=== PATIENT | female | born 1935 | race Caucasian/White ===

== ENCOUNTER 2021-07-13 17:33 | Emergency (ER) | payer MEDICARE, OTHER ==
[~2021-07-13] VITALS: Ht 152.4 cm; Wt 56.7 kg
[~2021-07-13 17:33] MED LIST: LISI-209 PO
[2021-07-13 17:52] VITALS: BP_SYST 163
[2021-07-13 19:04] LABS: BASOPHILS % (AUTO) 0.7 % (0.0-2.0); EOSINOPHILS # (AUTO) 0.1 K/uL (0.0-0.4); EOSINOPHILS % (AUTO) 2.7 % (0.0-4.0); HEMATOCRIT 36.8 % (36-48); HEMOGLOBIN 12.5 g/dL (12.0-16.0); LYMPHOCYTES # (AUTO) 1.3 K/uL (1.0-5.5); LYMPHOCYTES % (AUTO) 23.7 % (20.5-51.5); MEAN CORPUSCULAR HEMOGLOBIN 29 pg (27-31); MEAN CORPUSCULAR HGB CONC 34 % (32-36); MEAN CORPUSCULAR VOLUME 86 fL (79.0-98.0); MONOCYTES # (AUTO) 0.3 K/uL (0.0-1.0); MONOCYTES % (AUTO) 6.1 % (1.7-9.3); NEUTROPHILS # (AUTO) 3.6 K/uL (1.8-7.7); NEUTROPHILS % (AUTO) 66.8 % (40.0-70.0); PLATELET COUNT (AUTO) 197 K/uL (130-430); RED BLOOD CELL COUNT(AUTO) 4.29 MIL/uL (4.2-6.2); RED CELL DISTRIBUTION WIDTH 12.8 % (9.0-15.0); WHITE BLOOD COUNT (AUTO) 5.4 K/uL (4.8-10.8)
[2021-07-13 19:23] LABS: ANION GAP 6 (5-15); CALCIUM 8.7 mg/dL (8.4-11.0); CHLORIDE 103 mmol/L (98-107); GLUCOSE 116 mg/dL (70-99); POTASSIUM 3.2 mmol/L (3.5-5.1); SODIUM SERUM 139 mmol/L (136-145); UREA NITROGEN, BLOOD 21 mg/dL (8-21)
[2021-07-13 19:29] LABS: ALANINE AMINOTRANSFERASE 22 U/L (12-78); ALBUMIN 3.3 g/dL (3.4-4.8); ASPARTATE AMINOTRANSFERASE 15 U/L (10-37); TOTAL BILIRUBIN 0.3 mg/dL (0.0-1.0)
[2021-07-13 20:53] VITALS: BP_SYST 161
== END 2021-07-13 20:53 | disposition home or self-care (01) ==
LOC: SED 17:33
DX: R42 Dizziness and giddiness (principal); I10 Essential (primary) hypertension; Z88.8 Allergy status to other drugs, medicaments and biological substances; Z79.899 Other long term (current) drug therapy
CPT/HCPCS: 36415; 71045; 80053; 82550; 83735; 84484; 85025; 93005; 99285

== ENCOUNTER 2022-04-21 12:14 | Inpatient (IN) | payer MEDICARE, OTHER ==
[~2022-04-21] VITALS: Ht 149.9 cm; Wt 58.5 kg
[2022-04-21 12:28] VITALS: BP_SYST 130
--- NOTE | 2022-04-21 12:32 | NUR ---
Patient to ER bed 08 to gown for evaluation. Side rails up.
[2022-04-21 13:08] LABS: BASOPHILS % (AUTO) 0.2 % (0.0-2.0); HEMATOCRIT 35.7 % (36-48); HEMOGLOBIN 12.5 g/dL (12.0-16.0); LYMPHOCYTES # (AUTO) 0.6 K/uL (1.0-5.5); LYMPHOCYTES % (AUTO) 8.4 % (20.5-51.5); MEAN CORPUSCULAR HEMOGLOBIN 30 pg (27-31); MEAN CORPUSCULAR HGB CONC 35 % (32-36); MEAN CORPUSCULAR VOLUME 85 fL (79.0-98.0); MONOCYTES # (AUTO) 0.5 K/uL (0.0-1.0); MONOCYTES % (AUTO) 6.9 % (1.7-9.3); NEUTROPHILS # (AUTO) 6.5 K/uL (1.8-7.7); NEUTROPHILS % (AUTO) 84.5 % (40.0-70.0); PLATELET COUNT (AUTO) 173 K/uL (130-430); RED BLOOD CELL COUNT(AUTO) 4.22 MIL/uL (4.2-6.2); RED CELL DISTRIBUTION WIDTH 13.1 % (9.0-15.0); WHITE BLOOD COUNT (AUTO) 7.7 K/uL (4.8-10.8)
[2022-04-21 13:14] LABS: ANION GAP 8 (5-15); CALCIUM 8.9 mg/dL (8.4-11.0); CHLORIDE 101 mmol/L (98-107); CREATININE 1.05 mg/dL (0.55-1.30); GLUCOSE 131 mg/dL (70-99); POTASSIUM 3.3 mmol/L (3.5-5.1); SODIUM SERUM 137 mmol/L (136-145); UREA NITROGEN, BLOOD 22 mg/dL (8-21)
--- NOTE | 2022-04-21 13:18 | NUR ---
COVID SPECIMEN OBTAINED AND SENT TO LAB.
[2022-04-21 13:42] LABS: ALANINE AMINOTRANSFERASE 28 U/L (12-78); ASPARTATE AMINOTRANSFERASE 53 U/L (10-37); TOTAL BILIRUBIN 0.4 mg/dL (0.0-1.0)
[2022-04-21 14:01] LABS: ACETONE, SERUM NEGATIVE (NEGATIVE)
[2022-04-21 14:04] LABS: CKMB RELATIVE INDEX 0.3 (0.0-2.9); CREATINE KINASE MB 8.1 ng/mL (0-3.6)
--- NOTE | 2022-04-21 16:00 | NUR ---
DR. MAURICE MET WITH AND ASSESSED PT. MADE HIM AWARE PT HAS 100.4F TEMP, COOLING MEASURES IN PLACE, IVF NS AT 999/HOUR.
--- NOTE | 2022-04-21 16:10 | NUR ---
TYLENOL 1000MG PO GIVEN TO TEMP 100.2F.
[2022-04-21] MEDS ORDERED: ACETAMINOPHEN 500 MG TABLET PO ONE ×2 (16:15)
[2022-04-21] MEDS ORDERED: NACL 0.9% 1,000 ML IV ONE (16:30)
--- NOTE | 2022-04-21 17:19 | NUR ---
SPOKE TO PT REGARDING HOME MEDICATIONS, SHE DOES NOT KNOW WHAT SHE TAKES. CALLED PT'S DAUGHTER GUIDO AND LEFT MESSAGE FOR HER TO CALL BACK. THE PT SAYS THE DAUGHTER WILL KNOW HER MEDS. BRITTANY COMPLETED.
[2022-04-21] MEDS ORDERED: METO25TA6 PO (18:14)
[2022-04-21] MEDS ORDERED: HYDR25TA4 PO (18:14)
[2022-04-21] MEDS ORDERED: ASA81 PO (18:14)
--- NOTE | 2022-04-21 19:12 | NUR ---
Admit bed requested Patient will be admitted to care of DR. BRADFORD. Admitted to MED SURG unit. Diagnosis COVID Inpatient (Yes or No) YES Observation (Yes or No) NO Orientation concerns or request close to nursing station (Yes or No) NO Covid Status POSITIVE On vent or bipap NO Isolation requirements DROPLET Needs a sitter NO From Home (Yes or if No enter name of facility) YES Requires Dialysis (Yes or No) NO Med Rec Completed (Yes of No) YES
[2022-04-21] MEDS ORDERED: ACETAMINOPHEN 325 MG TABLET PO PRN ×2 (19:30→19:45)
[2022-04-21] MEDS ORDERED: NALOXONE HCL 0.4 MG/ML AMP (NARCAN) IVP PRN ×2 (19:30)
[2022-04-21] MEDS ORDERED: ONDANSETRON HCL 4 MG/2 ML VIAL IVP PRN (19:30)
[2022-04-21] MEDS ORDERED: MAGNESIUM SULFATE 50 ML IV PRN (19:30)
[2022-04-21] MEDS ORDERED: IPRATROPIUM/ALBUTEROL SULFATE 3 ML AMPUL.NEB (DUONEB) INH PRN (19:30)
[2022-04-21] MEDS ORDERED: DOCUSATE SODIUM 100 MG CAPSULE PO PRN (19:30)
[2022-04-21] MEDS ORDERED: MUPIROCIN 2% TOPICAL OINTMENT 22 GM NS PRN (19:30)
[2022-04-21] MEDS ORDERED: LORazepam 2 MG/ML VIAL IVP PRN (19:30)
[2022-04-21] MEDS ORDERED: MORPHINE 2 MG/ML INJ. SYRINGE IVP PRN (19:30)
[2022-04-21] MEDS ORDERED: ZOLPIDEM TARTRATE 5 MG TABLET PO PRN (19:30)
--- NOTE | 2022-04-21 19:30 | NUR ---
Received report from ANNA Francis; assuming care of patient at this time.
--- NOTE | 2022-04-21 19:31 | NUR ---
ENDORSED ALL CARE TO NOC SHIFT RN. ALL QUESTIONS AND CONCERNS ADDRESSED.
[2022-04-21] MEDS ORDERED: LORazepam 1 MG TABLET PO PRN (19:45)
[2022-04-21] MEDS ORDERED: ASPIRIN 81 MG TAB.CHEW PO ONE (20:00)
--- NOTE | 2022-04-21 20:15 | NUR ---
Patient resting comfortably in bed with side rails raised. Nad noted at this time.
--- NOTE | 2022-04-21 20:20 | NUR ---
Patient assisted with bed key; patient tolerated well.
[2022-04-21 20:42] LABS: BILIRUBIN,URINE NEGATIVE (NEGATIVE); BLOOD, URINE 1+ (NEGATIVE); CLARITY/URINE CLOUDY (CLEAR); COLOR,URINE YELLOW (YELLOW); GLUCOSE,URINE NEGATIVE (NEGATIVE); KETONES,URINE NEGATIVE (NEGATIVE); LEUKOCYTE ESTERASE ,URINE 2+ (NEGATIVE); NITRITE, URINE NEGATIVE (NEGATIVE); PROTEIN URINE TRACE (NEGATIVE); UROBILINOGEN,URINE 0.2 (0.2-1.0)
[2022-04-21 21:00] VITALS: BP_SYST 184
[2022-04-21 21:10] LABS: BACTERIA,URINE MODERATE /HPF (None Seen); WBC,URINE 20-50 /HPF (0-3)
--- NOTE | 2022-04-21 21:15 | NUR ---
Patient will be admitted to care of DR BRADFORD. Admitted to MED SURG unit. Will go to room 123B. Belongings list completed. Complete and up to date summary report printed. SBAR report given to ANNA Odonnell at bedside with opportunity for questions. Patient in stable condition at time of discharge. Patient A/Ox4, VSS, resp even and unlabored. Nad noted at this time.
--- NOTE | 2022-04-21 21:45 | NUR ---
ADMIT NOTE Received pt from ER to the floor with a diagnosis of COVID-19, generalized weakness. Admission process initiated. Patient oriented to pain management, safety and call light-teach back done.
[2022-04-22 02:00] VITALS: BP_SYST 155
[2022-04-22 05:40] VITALS: BP_SYST 132
--- NOTE | 2022-04-22 06:52 | NUR ---
CONSULTATION PAGED/CALLED Reason for Consultation: [] COVID Person Who was Notified: [] RICARDO Consulting Physician: [] DR KEARNS Climate Change Risk Assessor Specialty: [] ID Ordering Physician: [] DR BRADFORD
[2022-04-22 07:23] LABS: BASOPHILS % (AUTO) 0.4 % (0.0-2.0); HEMATOCRIT 31.8 % (36-48); HEMOGLOBIN 11.1 g/dL (12.0-16.0); LYMPHOCYTES # (AUTO) 0.8 K/uL (1.0-5.5); MEAN CORPUSCULAR HEMOGLOBIN 30 pg (27-31); MEAN CORPUSCULAR HGB CONC 35 % (32-36); MEAN CORPUSCULAR VOLUME 86 fL (79.0-98.0); MONOCYTES # (AUTO) 0.4 K/uL (0.0-1.0); MONOCYTES % (AUTO) 7.6 % (1.7-9.3); PLATELET COUNT (AUTO) 144 K/uL (130-430); RED BLOOD CELL COUNT(AUTO) 3.72 MIL/uL (4.2-6.2); RED CELL DISTRIBUTION WIDTH 13.2 % (9.0-15.0); WHITE BLOOD COUNT (AUTO) 5.3 K/uL (4.8-10.8)
--- NOTE | 2022-04-22 07:30 | NUR ---
Closing Patient resting in bed. New 22G placed to right wrist after previous IV accidentally pulled out by patient. Patient frequently attempted to get out of bed by herself throughout night. Education provided about preventing falls and using the call light, patient verbalized understanding but stated she really needed to use the bathroom and couldn't wait. Bed alarm set. Patient got up to bedside commode with one person assist.
--- NOTE | 2022-04-22 07:42 | NUR ---
Report received from night time nanny RN. Patient stable condition. No acute distress noted.
[2022-04-22 08:00] VITALS: BP_SYST 148
[2022-04-22 08:22] LABS: ANION GAP 7 (5-15); CHLORIDE 104 mmol/L (98-107); CREATININE 0.65 mg/dL (0.55-1.30); GLUCOSE 113 mg/dL (70-99); SODIUM SERUM 140 mmol/L (136-145); UREA NITROGEN, BLOOD 15 mg/dL (8-21)
[2022-04-22] MEDS: ASPIRIN 81 MG TAB.CHEW PO SCH (09:43)
[2022-04-22 09:44] LABS: CALCIUM 8.1 mg/dL (8.4-11.0)
[2022-04-22] MEDS: METOPROLOL TARTRATE 25 MG TABLET PO SCH (09:44)
[2022-04-22] MEDS: ENOXAPARIN SODIUM 30 MG/0.3 ML SYRINGE SUBCUT SCH (09:44)
[2022-04-22 09:53] LABS: POTASSIUM 2.9 mmol/L (3.5-5.1)
[2022-04-22 09:54] LABS: CKMB RELATIVE INDEX 0.2 (0.0-2.9)
[2022-04-22] MEDS: POTASSIUM CHLORIDE 20 MEQ TAB.PRT.SR PO PRN (10:33)
[2022-04-22 11:45] VITALS: BP_SYST 146
[2022-04-22] MEDS: cefTRIAXone 1 GM in D5W 50 ML IV SCH (15:38)
[2022-04-22] MEDS: AZITHROMYCIN 500 MG in NS 250 ML IV SCH (15:41)
[2022-04-22 16:00] VITALS: BP_SYST 136
[2022-04-22] MEDS: MORPHINE 2 MG/ML INJ. SYRINGE IVP PRN (17:06)
[2022-04-22] MEDS: BUDESONIDE 0.5 MG/2 ML AMPUL.NEB INH SCH (19:20)
--- NOTE | 2022-04-22 19:30 | NUR ---
Report given to warehouse worker 2nd shift RN for continuity of care. Patient stable.
--- NOTE | 2022-04-22 19:45 | NUR ---
RECEIVED PT LYIN IN BED
--- NOTE | 2022-04-22 19:46 | NUR ---
RECEIVED PT LYING IN BED, NO DISTRESS NOTED, AAOX4. PT WITH DRY COUGH, O2 SAT 98% ON RA. BLANCHABLE REDNESS TO SACRUM. REPOSITIONED TO RT SIDE.
[2022-04-22 20:00] VITALS: BP_SYST 142
[2022-04-23] VITALS (8 sets, daily range): BP systolic 128–158
[2022-04-23] MEDS: BUDESONIDE 0.5 MG/2 ML AMPUL.NEB INH SCH (07:00)
--- NOTE | 2022-04-23 07:17 | NUR ---
Report received from outcomes specialist RN for continuity of care. Patient in stable condition. No distress noted.
[2022-04-23] MEDS ORDERED: BUDESONIDE 0.5 MG/2 ML AMPUL.NEB INH PRN (08:15)
--- NOTE | 2022-04-23 08:26 | NUR ---
Patient found resting in bed noted to have coughed up minimal blood clots 3 cm amount on the sheet. Patient c/o right breast pain. made aware.
[2022-04-23 08:43] LABS: ANION GAP 7 (5-15); CALCIUM 7.9 mg/dL (8.4-11.0); CHLORIDE 100 mmol/L (98-107); CREATININE 0.66 mg/dL (0.55-1.30); GLUCOSE 108 mg/dL (70-99); SODIUM SERUM 135 mmol/L (136-145); UREA NITROGEN, BLOOD 11 mg/dL (8-21)
[2022-04-23] MEDS: METOPROLOL TARTRATE 25 MG TABLET PO SCH (08:43)
[2022-04-23] MEDS: MORPHINE 2 MG/ML INJ. SYRINGE IVP PRN (08:44)
[2022-04-23] MEDS: ASPIRIN 81 MG TAB.CHEW PO SCH ×2 (09:00→09:35)
[2022-04-23] MEDS ORDERED: ALBUTEROL SULFATE 0.083% 2.5 MG/3 ML VIAL.NEB INH SCH ×2 (09:00→13:00)
[2022-04-23] MEDS: ENOXAPARIN SODIUM 30 MG/0.3 ML SYRINGE SUBCUT SCH ×2 (09:00→09:35)
--- NOTE | 2022-04-23 10:35 | NUR ---
Dietitian Recommendations: *continue cardiac diet, encourage PO intake *suggest to provide Ensure Enlive BID, sip between meals *consider daily multivitamin, vitamin C and zinc sulfate (+COVID-19) *suggest to check vitamin D level and supplement as appropriate Please refer to nutrition assessment for details. PS, RD
[2022-04-23 12:02] LABS: BASOPHILS % (AUTO) 0.4 % (0.0-2.0); EOSINOPHILS % (AUTO) 0.1 % (0.0-4.0); HEMATOCRIT 34.7 % (36-48); HEMOGLOBIN 11.8 g/dL (12.0-16.0); LYMPHOCYTES % (AUTO) 19.5 % (20.5-51.5); MEAN CORPUSCULAR HEMOGLOBIN 29 pg (27-31); MEAN CORPUSCULAR HGB CONC 34 % (32-36); MEAN CORPUSCULAR VOLUME 85 fL (79.0-98.0); MONOCYTES # (AUTO) 0.4 K/uL (0.0-1.0); MONOCYTES % (AUTO) 7.3 % (1.7-9.3); NEUTROPHILS # (AUTO) 3.7 K/uL (1.8-7.7); NEUTROPHILS % (AUTO) 72.7 % (40.0-70.0); PLATELET COUNT (AUTO) 161 K/uL (130-430); RED BLOOD CELL COUNT(AUTO) 4.07 MIL/uL (4.2-6.2); RED CELL DISTRIBUTION WIDTH 13.5 % (9.0-15.0); WHITE BLOOD COUNT (AUTO) 5.1 K/uL (4.8-10.8)
[2022-04-23] MEDS: cefTRIAXone 1 GM in D5W 50 ML IV SCH (13:44)
[2022-04-23] MEDS: POTASSIUM CHLORIDE 20 MEQ TAB.PRT.SR PO PRN (15:01)
[2022-04-23] MEDS: AZITHROMYCIN 500 MG in NS 250 ML IV SCH (15:01)
[2022-04-23] MEDS ORDERED: FLUTICASONE 250 mCg/SALMETEROL 50 mCg DISKUS W.DEV INH SCH (19:00)
[2022-04-24 04:00] VITALS: BP_SYST 144
[2022-04-24 07:06] LABS: BASOPHILS % (AUTO) 0.4 % (0.0-2.0); EOSINOPHILS # (AUTO) 0.1 K/uL (0.0-0.4); EOSINOPHILS % (AUTO) 1.2 % (0.0-4.0); HEMATOCRIT 31.1 % (36-48); HEMOGLOBIN 10.9 g/dL (12.0-16.0); LYMPHOCYTES % (AUTO) 19.5 % (20.5-51.5); MEAN CORPUSCULAR HEMOGLOBIN 30 pg (27-31); MEAN CORPUSCULAR HGB CONC 35 % (32-36); MEAN CORPUSCULAR VOLUME 85 fL (79.0-98.0); MONOCYTES # (AUTO) 0.3 K/uL (0.0-1.0); MONOCYTES % (AUTO) 6.7 % (1.7-9.3); NEUTROPHILS # (AUTO) 3.6 K/uL (1.8-7.7); NEUTROPHILS % (AUTO) 72.2 % (40.0-70.0); PLATELET COUNT (AUTO) 148 K/uL (130-430); RED BLOOD CELL COUNT(AUTO) 3.66 MIL/uL (4.2-6.2); WHITE BLOOD COUNT (AUTO) 4.9 K/uL (4.8-10.8)
[2022-04-24 07:36] VITALS: BP_SYST 116
[2022-04-24 07:48] LABS: ANION GAP 6 (5-15); CALCIUM 8.5 mg/dL (8.4-11.0); CHLORIDE 102 mmol/L (98-107); CREATININE 0.76 mg/dL (0.55-1.30); GLUCOSE 121 mg/dL (70-99); POTASSIUM 3.7 mmol/L (3.5-5.1); SODIUM SERUM 137 mmol/L (136-145); UREA NITROGEN, BLOOD 13 mg/dL (8-21)
--- NOTE | 2022-04-24 08:30 | NUR ---
OPENING NOTES PT. IS AAOX4 NO REPORTS OF PAIN, REPORTS MINIMAL COUGH AND NO BLOOD TINGE SPUTUM NOTED. PT. IS ON ROOM AIR WITH O2 SATURATION AT 97%, NO SIGNS OF ACUTE DISTRESS. FALL PRECAUTIONS IN PLACE.
[2022-04-24] MEDS: ENOXAPARIN SODIUM 30 MG/0.3 ML SYRINGE SUBCUT SCH (09:46)
[2022-04-24] MEDS: METOPROLOL TARTRATE 25 MG TABLET PO SCH (09:49)
[2022-04-24] MEDS: ASPIRIN 81 MG TAB.CHEW PO SCH (09:52)
[2022-04-24 11:30] VITALS: BP_SYST 151
--- NOTE | 2022-04-24 12:55 | NUR ---
PT. IS AAOX4 NO REPORTS OF SOB, NO SIGNS OF ACUTE DISTRESS, FALL PRECAUTIONS IN PLACE.
[2022-04-24] MEDS: cefTRIAXone 1 GM in D5W 50 ML IV SCH (13:54)
[2022-04-24 15:55] VITALS: BP_SYST 146
[2022-04-24] MEDS: AZITHROMYCIN 500 MG in NS 250 ML IV SCH (15:56)
[2022-04-24 17:36] LABS: CKMB RELATIVE INDEX 0.2 (0.0-2.9)
--- NOTE | 2022-04-24 19:58 | NUR ---
CLOSING NOTE FULL SBAR REPORT GIVEN TO RN MEREDITH. PT. IS AAOX4 NO REPORTS OF PAIN OR SOB, NO SIGNS OF ACUTE DISTRESS.
[2022-04-24 20:00] VITALS: BP_SYST 158
[2022-04-24] MEDS: MORPHINE 2 MG/ML INJ. SYRINGE IVP PRN (20:41)
[2022-04-25 04:00] VITALS: BP_SYST 139
[2022-04-25 06:44] LABS: BASOPHILS % (AUTO) 0.3 % (0.0-2.0); EOSINOPHILS % (AUTO) 0.7 % (0.0-4.0); HEMATOCRIT 31.7 % (36-48); LYMPHOCYTES # (AUTO) 0.7 K/uL (1.0-5.5); LYMPHOCYTES % (AUTO) 13.6 % (20.5-51.5); MEAN CORPUSCULAR HEMOGLOBIN 30 pg (27-31); MEAN CORPUSCULAR HGB CONC 35 % (32-36); MEAN CORPUSCULAR VOLUME 85 fL (79.0-98.0); MONOCYTES # (AUTO) 0.3 K/uL (0.0-1.0); NEUTROPHILS # (AUTO) 3.8 K/uL (1.8-7.7); NEUTROPHILS % (AUTO) 79.4 % (40.0-70.0); PLATELET COUNT (AUTO) 148 K/uL (130-430); RED BLOOD CELL COUNT(AUTO) 3.74 MIL/uL (4.2-6.2); RED CELL DISTRIBUTION WIDTH 12.9 % (9.0-15.0); WHITE BLOOD COUNT (AUTO) 4.8 K/uL (4.8-10.8)
[2022-04-25 08:08] VITALS: BP_SYST 136
[2022-04-25 08:33] VITALS: BP_SYST 139
[2022-04-25 09:00] LABS: ANION GAP 7 (5-15); CALCIUM 8.6 mg/dL (8.4-11.0); CHLORIDE 100 mmol/L (98-107); CREATININE 0.73 mg/dL (0.55-1.30); GLUCOSE 121 mg/dL (70-99); POTASSIUM 3.6 mmol/L (3.5-5.1); SODIUM SERUM 137 mmol/L (136-145); UREA NITROGEN, BLOOD 13 mg/dL (8-21)
[2022-04-25] MEDS ORDERED: APIX2.5T PO (10:43)
[2022-04-25] MEDS: ASPIRIN 81 MG TAB.CHEW PO SCH (10:48)
[2022-04-25] MEDS: METOPROLOL TARTRATE 25 MG TABLET PO SCH (10:49)
[2022-04-25] MEDS: ENOXAPARIN SODIUM 30 MG/0.3 ML SYRINGE SUBCUT SCH (10:49)
[2022-04-25] MEDS: MORPHINE 2 MG/ML INJ. SYRINGE IVP PRN (10:51)
[2022-04-25 11:42] VITALS: BP_SYST 140
[2022-04-25] MEDS: cefTRIAXone 1 GM in D5W 50 ML IV SCH (12:28)
[2022-04-25] MEDS: AZITHROMYCIN 500 MG in NS 250 ML IV SCH (12:29)
[2022-04-25 17:16] VITALS: BP_SYST 132
--- NOTE | 2022-04-25 19:30 | NUR ---
OPENING NOTES: Patient received from AM shift nurse. Patient is AA&Ox4 no s/s of distress is noted at this time and patient denies any pain or distress at this time. Patient reports weakness and is educated on asking for assistance with transfers. Patient is able to ambulate to BSC with assistance and is continent of B&B. Chest rise is even and unlabored on RA and is being monitored for COVID. Active BS x4 on auscultation and no skin issues are noted. Patient has call light within reach and is able to verbalize needs. Will resume care and continue to monitor throughout the shift.
[2022-04-25 20:05] VITALS: BP_SYST 146
--- NOTE | 2022-04-26 | NUR ---
PATIENT RESTING: Patient resting quietly. No acute distress noted. Vital signs within normal range.
[2022-04-26 01:05] VITALS: BP_SYST 159
[2022-04-26 06:49] LABS: BASOPHILS % (AUTO) 0.2 % (0.0-2.0); EOSINOPHILS % (AUTO) 0.5 % (0.0-4.0); HEMATOCRIT 32.8 % (36-48); HEMOGLOBIN 11.3 g/dL (12.0-16.0); LYMPHOCYTES # (AUTO) 0.9 K/uL (1.0-5.5); LYMPHOCYTES % (AUTO) 15.4 % (20.5-51.5); MEAN CORPUSCULAR HEMOGLOBIN 29 pg (27-31); MEAN CORPUSCULAR HGB CONC 35 % (32-36); MEAN CORPUSCULAR VOLUME 85 fL (79.0-98.0); MONOCYTES # (AUTO) 0.3 K/uL (0.0-1.0); MONOCYTES % (AUTO) 5.9 % (1.7-9.3); NEUTROPHILS # (AUTO) 4.4 K/uL (1.8-7.7); PLATELET COUNT (AUTO) 173 K/uL (130-430); RED BLOOD CELL COUNT(AUTO) 3.87 MIL/uL (4.2-6.2); WHITE BLOOD COUNT (AUTO) 5.7 K/uL (4.8-10.8)
[2022-04-26 07:05] LABS: ANION GAP 6 (5-15); CALCIUM 8.5 mg/dL (8.4-11.0); CHLORIDE 98 mmol/L (98-107); CREATININE 0.75 mg/dL (0.55-1.30); GLUCOSE 122 mg/dL (70-99); POTASSIUM 3.6 mmol/L (3.5-5.1); SODIUM SERUM 136 mmol/L (136-145); UREA NITROGEN, BLOOD 12 mg/dL (8-21)
--- NOTE | 2022-04-26 07:25 | NUR ---
OPENING NOTE RECEIVED SBAR FROM NIGHT RN, PATIENT IN BED, RESPIRATIONS EVEN, NON LABORED BED IN LOW AND LOCKED POSITION CALL LIGHT WITHIN REACH. BED ALARM ON.
[2022-04-26] MEDS: ENOXAPARIN SODIUM 30 MG/0.3 ML SYRINGE SUBCUT SCH (08:57)
[2022-04-26] MEDS: ASPIRIN 81 MG TAB.CHEW PO SCH (08:57)
[2022-04-26] MEDS: METOPROLOL TARTRATE 25 MG TABLET PO SCH (08:58)
--- NOTE | 2022-04-26 10:00 | NUR ---
NURSE NOTE PATIENT IN BED, RESPIRATIONS EVEN, NON LABORED, BED IN LOW AND LOCKED POSITION CALL LIGHT WITHIN REACH, BED ALARM ON. ASSISTED PATIENT IN MAKING PHONE CALL TO FAMILY
--- NOTE | 2022-04-26 12:50 | NUR ---
Discharge Planning: [facility] faxed pt referral to [facility] [phone] [facility] to follow up. Addendum: 04/26/22 at 1348 by Taylor Villeda DP [facility] [phone] accepted pt to Rm 216, CATRACHO made CM aware.
[2022-04-26] MEDS: cefTRIAXone 1 GM in D5W 50 ML IV SCH (13:08)
[2022-04-26] MEDS: AZITHROMYCIN 500 MG in NS 250 ML IV SCH (13:08)
[2022-04-26 13:48] VITALS: BP_SYST 154
[2022-04-26 18:54] VITALS: BP_SYST 141
--- NOTE | 2022-04-26 19:20 | NUR ---
CLOSING NOTE PROVIDED SBAR TO NIGHT RN, PAIENT IN BED, RESPIRATIONS EVEN, NON LABORED, BED IN LOW AND LOCKED POSITION, CALL LIGHT WITHIN REACH. BED ALARM ON. ENDORSED CARE TO NIGHT RN
[2022-04-26 20:00] VITALS: BP_SYST 145
[2022-04-26] MEDS: NITROFURANTOIN MONOHYD/M-CRYST 100 MG CAPSULE (MacroBID) PO SCH (21:59)
[2022-04-27 00:30] VITALS: BP_SYST 151
--- NOTE | 2022-04-27 07:20 | NUR ---
OPENING NOTE RECEIVED SBAR FROM NIGHT RN, PATIENT IN BED, RESPIRATIONS EVEN, NON LABORED, BED IN LOW AND LOCKED POSITION CALL LIGHT WITHIN REACH. BED ALARM ON
[2022-04-27 08:00] VITALS: BP_SYST 132
[2022-04-27] MEDS: METOPROLOL TARTRATE 25 MG TABLET PO SCH (08:36)
[2022-04-27] MEDS: ENOXAPARIN SODIUM 30 MG/0.3 ML SYRINGE SUBCUT SCH (08:36)
[2022-04-27] MEDS: NITROFURANTOIN MONOHYD/M-CRYST 100 MG CAPSULE (MacroBID) PO SCH ×2 (08:36→21:40)
[2022-04-27] MEDS: ASPIRIN 81 MG TAB.CHEW PO SCH (08:36)
[2022-04-27] MEDS ORDERED: NITR-85 PO (09:36)
--- NOTE | 2022-04-27 10:00 | NUR ---
NURSE NOTE PROVIDED PATIENT WITH BED BATH, CHANGED LINENS, ASSISTED WITH ADL'S . PATIENT SAT IN BEDSIDE CHAIR. DENIED ANY PAIN OR DISCOMFORT. RETURNED PATIENT TO BED
[2022-04-27 12:00] VITALS: BP_SYST 142
[2022-04-27 16:00] VITALS: BP_SYST 136
--- NOTE | 2022-04-27 16:00 | NUR ---
NURSE NOTE ASSISTED PATIENT TO BEDSIDE COMMODE. VOIDED. RETURNED TO BED. DENIES ANY PAIN OR DISCOMFORT
--- NOTE | 2022-04-27 19:20 | NUR ---
CLOSING NOTE PROVIDED SBAR TO NIGHT RN. PATIENT IN BED, RESPIRATIONS EVEN, NON LABORED. BED IN LOW AND LOCKED POSITION CALL LIGHT WITHIN REACH. IV IS SALINE LOCKED. ENDORSED CARE TO NIGHT RN
[2022-04-27 20:00] VITALS: BP_SYST 131
--- NOTE | 2022-04-28 08:00 | NUR ---
MORNING ROUNDS: PATIENT AWAKE DURING ROUNDS. AIRBORNE AND CONTACT ISOLATION PRECAUTION RENDERED. CALL LIGHT WITH IN REACH. BED LOCKED AT LOWEST POSITION.BED ALARM ON. NO ACUTE DISTRESS.
[2022-04-28 09:00] VITALS: BP_SYST 148
[2022-04-28] MEDS: ASPIRIN 81 MG TAB.CHEW PO SCH (10:10)
[2022-04-28] MEDS: NITROFURANTOIN MONOHYD/M-CRYST 100 MG CAPSULE (MacroBID) PO SCH ×2 (10:10→21:58)
[2022-04-28] MEDS: METOPROLOL TARTRATE 25 MG TABLET PO SCH (10:10)
[2022-04-28] MEDS: ENOXAPARIN SODIUM 30 MG/0.3 ML SYRINGE SUBCUT SCH (10:13)
--- NOTE | 2022-04-28 10:30 | NUR ---
RN ROUNDS: Physical therapist assisted patient to ambulate via front wheel walker in the room. stable.
[2022-04-28 13:56] VITALS: BP_SYST 147
--- NOTE | 2022-04-28 14:25 | NUR ---
Rn Rounding: Patient resting. No complained made.
--- NOTE | 2022-04-28 16:37 | NUR ---
Discharge Planning: DCP spoke to Nighat P#[phone] Dylon P#[phone] auth was declined to [facility]. DCP was give a list of facilities [facility], [facility], [facility], [facility], [facility], [facility], [facility], [facility], [facility], [facility], [facility], [facility], Addendum: 04/28/22 at 1642 by Taylor Villeda DP DCP will follow up with which facility accepts covid positive.
--- NOTE | 2022-04-28 18:15 | NUR ---
Rn Rounds: Patient awake on the bed. Call light with in reach. Bed alarm on for safety precautions. No needs this time.
--- NOTE | 2022-04-28 18:32 | NUR ---
Nutrition F/U Admitting Diagnosis COVID Reviewed Pertinent Medical/Surgical Hx Medical Record Primary RN Medical History Comment: PMH: HTN, left breast lumpectomy, per family member report, the patient has a history of stroke The patient presented w/ complaint of fatigue, poor appetite, fever, chills; per MD note: COVID infection, rhabdo, DHN, hypokalemia, "HTN out of control" SARS-CoV-2 Ag (Rapid) POSITIVE 04/21/22 Subjective Information: RD bedside visit deferred to minimize exposure to COVID-19. RD spoke w/ pt's primary RN and FILING CLERK who reported that pt is a picky eater, but that she is eating OK, enjoys fruits and will eat well depending on what is offered to her. Pt is already on Ensure ONS and seems to be enjoying ONS per RN report. Per EMR review, PO intake average of 33% x11 meal records; abd is soft and non-distended w/ active bowel sounds; LBM x1 04/27; on RA. Current diet is appropriate, though pt is not yet meeting optimal nutritional needs. Maximum encouragement at meal times is warranted. Current Diet Order/Nutrition Support : Cardiac, Ensure High Protein TID x5 days Pertinent Medications: lovenox, lopressor, zofran, morphine Pertinent Labs: K 3.6 WNL, BG 122 H, HgA1c 6.2 H Height (Feet) 4 feet Height (Inches) 11.00 inches Weight (Pounds) 129 pounds -- stable 04/23 Patient Weight 58.513 kg Body Mass Index 26.05 kg/m2 Usual Weight 130 lbs %UBW 99 %IBW 132 [place]/Adjusted Body Weight 98# (44.5kg) Recent Weight Change No Weight Status Overweight Gastrointestinal Symptoms None Food Allergies No - pt's daughter reports the pt has NKFA Usual Diet At Home Heart-healthy, DAMASO, plant-based Skin Integrity Comment: Chalino 21 04/22/22 0542 Current % PO Poor Estimated Energy Expenditure (kcals/day) 2682-2086 (IBW 44.5kg 25-30 kcals/kg, overweight) Estimated Protein Required (g/day) 53-62 (IBW 44.5kg 1.2-1.4 gm/kg per renal dorian., +SARS-CoV-2) Estimated Fluid Required (l/day) 1.1-1.3 liters fluid/d or per MD Problem/Etiology/Signs/Symptoms Increased nutrient needs R/T metabolic demands AEB +SARS-CoV-2. *Ongoing Suboptimal protein-calorie intake AEB report of poor appetite HAND UPPER AND BOTTOM LACER now w/ PO intake ~50% on average. *Seemingly declining appetite Expected Outcomes/Goals Monitor tolerance of diet, PO intake, with goal of patient consuming >75% of meals on average, nutrition-related labs trending within acceptable range by DC, normal GI function, skin integrity, weight maintenance Dietitian Recommendations * Continue Cardiac diet, Ensure High Protein TID * Maximum encouragement at meal times continue cardiac diet, encourage PO intake * Consider daily MVI, VIT C, and zinc sulfate (+COVID-19) * Suggest to check vitamin D level and supplement as appropriate Follow Up Mod Risk: F/U in 3-5 days
--- NOTE | 2022-04-28 18:37 | NUR ---
Evening Rounds: Patient is stable. Safety measures rendered.Call light with in reach. Awaits for bed availability in [facility].No acute distress.
--- NOTE | 2022-04-28 18:37 | NUR ---
Dietitian Recommendations * Continue Cardiac diet, Ensure High Protein TID * Maximum encouragement at meal times continue cardiac diet, encourage PO intake * Consider daily MVI, VIT C, and zinc sulfate (+COVID-19) * Suggest to check vitamin D level and supplement as appropriate LP, MS, RD Please refer to Nutrition F/U for details.
[2022-04-28 18:51] VITALS: BP_SYST 155
[2022-04-28 20:00] VITALS: BP_SYST 139
[2022-04-29 00:38] VITALS: BP_SYST 147
[2022-04-29 08:00] VITALS: BP_SYST 156
[2022-04-29] MEDS: NITROFURANTOIN MONOHYD/M-CRYST 100 MG CAPSULE (MacroBID) PO SCH (08:49)
[2022-04-29] MEDS: METOPROLOL TARTRATE 25 MG TABLET PO SCH (08:49)
[2022-04-29] MEDS: ASPIRIN 81 MG TAB.CHEW PO SCH (08:49)
[2022-04-29] MEDS: ENOXAPARIN SODIUM 30 MG/0.3 ML SYRINGE SUBCUT SCH (08:49)
--- NOTE | 2022-04-29 11:52 | NUR ---
Discharge Planning: DCP faxed pt referral to [place] [phone], [facility] [phone], [facility] [phone], [facility] [phone], [facility] [phone]. DCP to follow up Addendum: 04/29/22 at 1405 by Taylor Villeda DP [place] [phone] -accepted pt, [facility] [phone]-not contracted, [facility] [phone]-no staff for Covid positive, [facility] [phone]-accepted, [facility] [phone]-no response.
[2022-04-29 12:00] VITALS: BP_SYST 145
[2022-04-29 13:07] VITALS: BP_SYST 145
--- NOTE | 2022-04-29 13:49 | NUR ---
Spoke with [facility]-they have accepted the patient for start of service 05/04/22. Patient,nurse and patient's daughter notified of DC and home health w/ [facility] [phone]. [facility]isted given the name of PCP Dr Alex Mirza [phone].
[2022-04-29 16:49] VITALS: BP_SYST 137
== END 2022-04-29 17:30 | disposition home health service (06) | DRG 178 ==
LOC: SED 12:14 → SMU 16:29
PROVIDERS: ADMIT General Practice; ATTEND General Practice
DX: U07.1 COVID-19 (principal); E44.0 Moderate protein-calorie malnutrition; M62.82 Rhabdomyolysis; N39.0 Urinary tract infection, site not specified; E86.0 Dehydration; E87.6 Hypokalemia; N64.4 Mastodynia; I10 Essential (primary) hypertension; Z87.440 Personal history of urinary (tract) infections; Z68.26 Body mass index [BMI] 26.0-26.9, adult
CPT/HCPCS: 36415; 71045; 76641; 80048; 80053; 81000; 82009; 82550; 82553; 83036; 83605; 83735; 85025; 85379; 86140; 87040; 87086; 93005; 94640; 94760; 97110-GP; 97112-GP; 97116-GP; 97530-GP; 99285; J0456; J0696; J1650; J2270; J2405; J7050; J7060; J7626; U0003

== ENCOUNTER 2023-12-24 21:59 | Emergency (ER) | payer MEDICARE ==
[~2023-12-24] VITALS: Ht 152.4 cm; Wt 51.7 kg
[~2023-12-24 21:59] MED LIST changes: +APIX2.5T PO; +ASA81 PO; +HYDR25TA4 PO; +METO25TA6 PO; +NITR-85 PO
[2023-12-24 22:00] VITALS: BP_SYST 220; PULSE 82; RESP 20; TEMP 97.7; O2SAT 98
[2023-12-24] MEDS: LABETALOL HCL 20 MG/4 ML CARTRIDGE IVP ONE (22:56)
[2023-12-24] MEDS: HYDROcodone/ACETAMIN 5-325 MG TAB (NORCO/ VICODIN) PO ONE (22:58)
[2023-12-24 23:16] LABS: HEMOGLOBIN 12.5 g/dL (12.0-16.0)
[2023-12-24 23:32] LABS: BILIRUBIN,URINE NEGATIVE (NEGATIVE); BLOOD, URINE NEGATIVE (NEGATIVE); CLARITY/URINE CLEAR (CLEAR); COLOR,URINE YELLOW (YELLOW); GLUCOSE,URINE NEGATIVE (NEGATIVE); KETONES,URINE NEGATIVE (NEGATIVE); LEUKOCYTE ESTERASE ,URINE NEGATIVE (NEGATIVE); NITRITE, URINE NEGATIVE (NEGATIVE); PH,URINE 7.5 (5.0-8.0); PROTEIN URINE NEGATIVE (NEGATIVE); UROBILINOGEN,URINE 0.2 (0.2-1.0)
[2023-12-24 23:33] LABS: PROTHROMBIN TIME 10.2 SECS (9.5-12.5)
[2023-12-24 23:35] LABS: BASOPHILS % (AUTO) 0.4 % (0.0-2.0); EOSINOPHILS # (AUTO) 0.1 K/uL (0.0-0.4); EOSINOPHILS % (AUTO) 1.4 % (0.0-4.0); HEMATOCRIT 36.2 % (36-48); LYMPHOCYTES # (AUTO) 1.5 K/uL (1.0-5.5); LYMPHOCYTES % (AUTO) 14.7 % (20.5-51.5); MEAN CORPUSCULAR HEMOGLOBIN 29 pg (27-31); MEAN CORPUSCULAR HGB CONC 34 % (32-36); MEAN CORPUSCULAR VOLUME 84 fL (79.0-98.0); MONOCYTES # (AUTO) 0.4 K/uL (0.0-1.0); MONOCYTES % (AUTO) 4.1 % (1.7-9.3); NEUTROPHILS # (AUTO) 8.2 K/uL (1.8-7.7); NEUTROPHILS % (AUTO) 79.4 % (40.0-70.0); PLATELET COUNT (AUTO) 221 K/uL (130-430); RED BLOOD CELL COUNT(AUTO) 4.31 MIL/uL (4.2-6.2); RED CELL DISTRIBUTION WIDTH 12.9 % (9.0-15.0); WHITE BLOOD COUNT (AUTO) 10.4 K/uL (4.8-10.8)
[2023-12-24 23:38] LABS: ANION GAP 11 (5-15); CALCIUM 8.7 mg/dL (8.4-11.0); CARBON DIOXIDE 27 mmol/L (23-29); CHLORIDE 101 mmol/L (98-107); GLUCOSE 137 mg/dL (74-106); POTASSIUM 3.6 mmol/L (3.5-5.1); SODIUM SERUM 139 mmol/L (136-145); UREA NITROGEN, BLOOD 15 mg/dL (8-21)
[2023-12-25 00:16] VITALS: BP_SYST 161; PULSE 82; RESP 20; TEMP 97.7; O2SAT 98
== END 2023-12-25 00:16 | disposition home or self-care (01) ==
LOC: SED 21:59
DX: M54.50 Low back pain, unspecified (principal); R51.9 Headache, unspecified; I10 Essential (primary) hypertension; Z88.8 Allergy status to other drugs, medicaments and biological substances; Z79.899 Other long term (current) drug therapy
CPT/HCPCS: 36415; 70450-TC; 72131; 72170-TC; 80048; 81001; 81003; 84484; 85025; 85610; 93005; 96374; 99285

== ENCOUNTER 2024-01-15 22:02 | Inpatient (IN) | payer MEDICARE ==
[~2024-01-15] VITALS: Ht 152.4 cm; Wt 53.5 kg
[2024-01-15 22:08] VITALS: BP_SYST 133; PULSE 85; RESP 16; TEMP 97.9; O2SAT 95
[2024-01-15 23:00] LABS: BASOPHILS # (AUTO) 0.1 K/uL (0.0-0.2); BASOPHILS % (AUTO) 0.8 % (0.0-2.0); EOSINOPHILS # (AUTO) 0.2 K/uL (0.0-0.4); EOSINOPHILS % (AUTO) 2.9 % (0.0-4.0); HEMATOCRIT 34.2 % (36-48); LYMPHOCYTES # (AUTO) 1.5 K/uL (1.0-5.5); LYMPHOCYTES % (AUTO) 21.3 % (20.5-51.5); MEAN CORPUSCULAR HEMOGLOBIN 29 pg (27-31); MEAN CORPUSCULAR HGB CONC 35 % (32-36); MEAN CORPUSCULAR VOLUME 84 fL (79.0-98.0); MONOCYTES # (AUTO) 0.4 K/uL (0.0-1.0); NEUTROPHILS # (AUTO) 4.9 K/uL (1.8-7.7); PLATELET COUNT (AUTO) 216 K/uL (130-430); RED BLOOD CELL COUNT(AUTO) 4.06 MIL/uL (4.2-6.2); RED CELL DISTRIBUTION WIDTH 13.2 % (9.0-15.0); WHITE BLOOD COUNT (AUTO) 7.2 K/uL (4.8-10.8)
[2024-01-15 23:48] LABS: PROTHROMBIN TIME 10.4 SECS (9.5-12.5)
[2024-01-15 23:53] LABS: ANION GAP 10 (5-15); CALCIUM 9.2 mg/dL (8.4-11.0); CARBON DIOXIDE 31 mmol/L (23-29); CHLORIDE 100 mmol/L (98-107); CREATININE 0.91 mg/dL (0.55-1.30); GLUCOSE 146 mg/dL (74-106); SODIUM SERUM 141 mmol/L (136-145); UREA NITROGEN, BLOOD 20 mg/dL (8-21)
[2024-01-15 23:55] LABS: POTASSIUM 2.9 mmol/L (3.5-5.1)
[2024-01-16] VITALS (7 sets, daily range): BP systolic 135–153; PULSE 66–87; RESP 16–18; TEMP 97.4–98.3; O2SAT 96–98
[2024-01-16] MEDS: POTASSIUM CHLORIDE 20 MEQ/PKT PACKET PO ONE (00:02)
[2024-01-16 00:11] LABS: BILIRUBIN,DIRECT 0.1 mg/dL (0.0-0.3); TOTAL BILIRUBIN 0.3 mg/dL (0.0-1.0); TOTAL PROTEIN, SERUM 7.4 g/dL (6.4-8.3)
[2024-01-16] MEDS ORDERED: NITSL SL (00:55)
[2024-01-16] MEDS ORDERED: HYG25 PO (00:55)
[2024-01-16] MEDS: NACL 0.9% 1,000 ML IV SCH (03:35)
[2024-01-16] MEDS ORDERED: CHLORTHALIDONE 25 MG TABLET (HYGROTON) PO SCH (09:00)
[2024-01-16] MEDS: ASPIRIN 81 MG TAB.CHEW PO SCH (09:32)
[2024-01-16] MEDS: POTASSIUM CHLORIDE 20 MEQ TABLET.ER PO ONE (09:33)
[2024-01-16] MEDS: METOPROLOL TARTRATE 25 MG TABLET PO SCH (09:34)
[2024-01-16] MEDS ORDERED: ONDANSETRON HCL 4 MG/2 ML VIAL IVP PRN (09:45)
[2024-01-16] MEDS ORDERED: MAGNESIUM SULFATE 50 ML IV PRN (09:45)
[2024-01-16] MEDS ORDERED: ACETAMINOPHEN 325 MG TABLET PO PRN ×3 (09:45)
[2024-01-16] MEDS ORDERED: POTASSIUM CHLORIDE 20 MEQ TABLET.ER PO PRN (09:45)
[2024-01-16] MEDS ORDERED: LORazepam 2 MG/ML VIAL IVP PRN (09:45)
[2024-01-16] MEDS ORDERED: ZOLPIDEM TARTRATE 5 MG TABLET PO PRN (09:45)
[2024-01-16] MEDS ORDERED: MUPIROCIN 2% TOPICAL OINTMENT 22 GM NS PRN (09:45)
[2024-01-16] MEDS ORDERED: DOCUSATE SODIUM 100 MG CAPSULE PO PRN (09:45)
[2024-01-16 10:01] LABS: ANION GAP 11 (5-15); CALCIUM 9.1 mg/dL (8.4-11.0); CARBON DIOXIDE 29 mmol/L (23-29); CHLORIDE 103 mmol/L (98-107); CREATININE 0.87 mg/dL (0.55-1.30); GLUCOSE 186 mg/dL (74-106); SODIUM SERUM 143 mmol/L (136-145); UREA NITROGEN, BLOOD 16 mg/dL (8-21)
[2024-01-16 10:04] LABS: POTASSIUM 2.9 mmol/L (3.5-5.1)
[2024-01-16] MEDS: HYDROCHLOROTHIAZIDE 12.5 MG CAPSULE (HCTZ) PO ONE (11:00)
[2024-01-16] MEDS: POTASSIUM CHLORIDE 40 MEQ in NS 250 ML IV ONE (11:33)
[2024-01-16] MEDS ORDERED: MAGNESIUM SULFATE 50 ML IV ONE (13:00)
[2024-01-16] MEDS: MAGNESIUM SULFATE 50 ML IV ONE (16:58)
[2024-01-16 22:18] LABS: BILIRUBIN,URINE NEGATIVE (NEGATIVE); BLOOD, URINE NEGATIVE (NEGATIVE); CLARITY/URINE CLEAR (CLEAR); COLOR,URINE YELLOW (YELLOW); GLUCOSE,URINE NEGATIVE (NEGATIVE); KETONES,URINE NEGATIVE (NEGATIVE); LEUKOCYTE ESTERASE ,URINE NEGATIVE (NEGATIVE); NITRITE, URINE NEGATIVE (NEGATIVE); PROTEIN URINE NEGATIVE (NEGATIVE); UROBILINOGEN,URINE 0.2 (0.2-1.0)
[2024-01-17 01:28] VITALS: BP_SYST 163; PULSE 68; RESP 18; TEMP 98.4; O2SAT 97
[2024-01-17 06:54] LABS: ANION GAP 11 (5-15); CALCIUM 8.2 mg/dL (8.4-11.0); CARBON DIOXIDE 25 mmol/L (23-29); CHLORIDE 105 mmol/L (98-107); GLUCOSE 128 mg/dL (74-106); POTASSIUM 3.2 mmol/L (3.5-5.1); SODIUM SERUM 141 mmol/L (136-145); UREA NITROGEN, BLOOD 11 mg/dL (8-21)
[2024-01-17 07:00] VITALS: O2SAT 97
[2024-01-17 08:00] VITALS: BP_SYST 157; PULSE 76; RESP 18; TEMP 96.9; O2SAT 97
[2024-01-17] MEDS: POTASSIUM CHLORIDE 20 MEQ TABLET.ER PO ONE (08:30)
[2024-01-17] MEDS: HYDROCHLOROTHIAZIDE 12.5 MG CAPSULE (HCTZ) PO SCH (08:32)
[2024-01-17 09:15] VITALS: BP_SYST 157; PULSE 81; RESP 18; TEMP 96.9; O2SAT 97
== END 2024-01-17 11:00 | disposition home or self-care (01) | DRG 74 ==
LOC: SED 22:02 → STU 01-16 00:46 → SMU 01-17 10:03
PROVIDERS: ADMIT General Practice; ATTEND General Practice
DX: G90.8 Other disorders of autonomic nervous system (principal); I24.9 Acute ischemic heart disease, unspecified; E44.1 Mild protein-calorie malnutrition; E87.6 Hypokalemia; I95.89 Other hypotension; I10 Essential (primary) hypertension; Z79.899 Other long term (current) drug therapy; Z68.23 Body mass index [BMI] 23.0-23.9, adult; Z86.73 Personal history of transient ischemic attack (TIA), and cerebral infarction without residual deficits; I25.2 Old myocardial infarction
CPT/HCPCS: 36415; 70450-TC; 71045; 80048; 80076; 81001; 81003; 83735; 83880; 84484; 85025; 85610; 85730; 93005; 93880; 97110-GP; 97116-GP; 97530-GP; 99285; G0378; J3475; J3480; J7050